=== PATIENT | male | born 1960 | race Caucasian/White ===

== ENCOUNTER 2021-06-19 01:40 | Day surgery (SDC) | payer OTHER, SELFPAY ==
[2021-06-07 08:55] VITALS: BMI 35.9
[2021-06-19 06:51] LABS: Glucose Point of Care 167 mg/dl (65-105)
[2021-06-19 06:53] VITALS: BP 162/86; PULSE 93; RESP 18; TEMP 36.4; O2SAT 98
[2021-06-19] MEDS: LACTATED RINGERS 1,000 ML 150 ML IV CONT (06:58)
--- NOTE | 2021-06-19 07:41 | WPDANESEPPF ---
Anes - Initial Pre Proc Eval Procedure: Operation Date: 06/19/21 08:00 Proposed Procedures p Screening Colonoscopy - Francisco Javier Mae MD Date/Time: 06/19/21 07:41 Surgeon: Francisco Javier Mae MD Pre Op Diagnosis: hx of colon polyps Patient Data Age: 60 Gender: M Height: 1.88 m Weight: 130.1 kg Last Vital Signs Temp 97.5 F L 06/19/21 06:53 Pulse 93 06/19/21 06:53 Resp 18 06/19/21 06:53 BP 162/86 H 06/19/21 06:53 Pulse Ox 98 06/19/21 06:53 Allergies Allergy/AdvReac Type Severity Reaction Status Date / Time No Known Allergies Allergy Verified 06/19/21 06:51 Home Medications Medication Instructions Recorded Confirmed Type amlodipine 10 mg tablet 10 mg PO DAILY #90 tablet 01/15/21 06/19/21 Rx glimepiride 1 mg tablet 1 mg PO QAM #90 tablet 01/15/21 06/19/21 Rx clobetasol 0.05 % topical cream 1 applic TOPICAL BID PRN #60 gm 02/14/21 06/19/21 Rx lisinopril 20 1 tablet PO DAILY #90 tablet 02/14/21 06/19/21 Rx mg-hydrochlorothiazide 25 mg tablet potassium chloride 20 mEq 20 meq PO DAILY #90 tablet 02/14/21 06/19/21 Rx tablet,extended release ibuprofen 800 mg tablet See Rx Instructions .ROUTE 02/19/21 06/19/21 Rx .COMPLEX #180 tablet atorvastatin 20 mg tablet 20 mg PO DAILY #90 tablet 04/18/21 06/19/21 Rx citalopram 40 mg tablet 40 mg PO DAILY #90 tablet 04/18/21 06/19/21 Rx furosemide 40 mg PO DAILY 06/07/21 06/19/21 History pioglitazone 45 mg PO DAILY 06/07/21 06/19/21 History Laboratory Tests 06/19/21 06:47 POC Capillary Glucose 167 mg/dl H mg/dl (65-105) Patient hx anesthesia problems: none Family hx anesthesia problems: none Results Review: All pre-operative results and documents have been reviewed as part of the pre-operative evaluation. [facility] Past Medical History Medical History (Updated 02/23/22 @ 09:25 by Kai An MD) Depression History of prostate cancer Obesity Surgical History Surgical History History of radical prostatectomy Status post arthrodesis 1st metatarsophalangeal Status post colon resection due to large lipoma Status post right knee replacement Family History Family History Mother Family history of malignant neoplasm of ovary Social History Social History Social History: Smoking status: Never smoker Second hand tobacco smoke exposure: No Alcohol intake: current Drinks per week: 16 Alcohol use details: BEER Substance use: never Substance use type: does not use Living arrangements: with family Additional living arrangements comments: pt 2 sons live him Gender identity (if verbalized by the patient): Male Sexual Orientation (if Verbalized by the Patient): Straight or Heterosexual Spiritual care concerns: No Anes - Eval Final PreProcedure Day of Procedure 06/19/21 07:41 Patient weight: obese Heart: regular rate and rhythm Lungs: clear to auscultation Airway: Mallampati scale class III Neurological: alert and oriented Last oral intake: >/= 8 hours ASA classification: III Emergent: no Anesthetic plan: proceed Anesthesia type and monitoring: general GIVS and standard monitoring Results Review: All pre-operative results and documents have been reviewed as part of the pre-operative evaluation. Informed Consent: The patient's anesthetic plan and its attendant risks and benefits were discussed with the patient/family/POA. Questions were solicited and answers provided to the satisfaction of the patient/family/POA.
--- NOTE | 2021-06-19 07:52 | PM.HPGS ---
History of Present Illness History of Present Illness Consent: Risks, benefits, and alternatives have been discussed and questions answered. Patient agrees to proceed with procedure. Chief complaint: hx of colon polyps Narrative: Gurmeet Henderson is a 60 year old male with non-malignant mass in descending colon 2015 removed with partial colectomy ? lipoma, he is due to have another colonoscopy. Review of Systems Constitutional: Constitutional: Denies headache(s) and Denies weakness Eyes: Eyes: Denies blurry vision ENT: Reports Normal hearing present, Denies headache(s) and Denies neck pain Cardiovascular: Cardiovascular: Denies chest pain and Denies dyspnea Respiratory: Respiratory: Denies dyspnea Gastrointestinal: Gastrointestinal: Reports no additional gastrointestinal complaints Genitourinary: Genitourinary: Denies dysuria Musculoskeletal: Musculoskeletal: Denies neck pain Integumentary/Breasts: Skin/Breast: Denies dry skin Neurologic: Reports Normal hearing present, Denies headache(s) and Denies weakness Psychiatric: Psychiatric: Denies anxiety Endocrine: Endocrine: Denies change in body appearance Hematologic/Lymphatic: Hematologic/Lymphatic: Denies easy bleeding Allergic/Immunologic: Allergic/Immunologic: Denies urticaria PMFSH Past Medical History Medical History (Updated 06/19/21 @ 07:53 by Francisco Javier Mae MD) Adenomatous colon polyp Depression History of prostate cancer Obesity Surgical History Surgical History History of radical prostatectomy Status post arthrodesis 1st metatarsophalangeal Status post colon resection due to large lipoma Status post right knee replacement Family History Family History Mother Family history of malignant neoplasm of ovary Social History Social History Social History: Smoking status: Never smoker Second hand tobacco smoke exposure: No Alcohol intake: current Drinks per week: 16 Alcohol use details: BEER Substance use: never Substance use type: does not use Living arrangements: with family Additional living arrangements comments: pt 2 sons live him Gender identity (if verbalized by the patient): Male Sexual Orientation (if Verbalized by the Patient): Straight or Heterosexual Spiritual care concerns: No Meds Home Medications and Allergies Home Medications Medication Instructions Recorded Confirmed Type amlodipine 10 mg tablet 10 mg PO DAILY #90 tablet 01/15/21 06/19/21 Rx glimepiride 1 mg tablet 1 mg PO QAM #90 tablet 01/15/21 06/19/21 Rx clobetasol 0.05 % topical cream 1 applic TOPICAL BID PRN #60 gm 02/14/21 06/19/21 Rx lisinopril 20 1 tablet PO DAILY #90 tablet 02/14/21 06/19/21 Rx mg-hydrochlorothiazide 25 mg tablet potassium chloride 20 mEq 20 meq PO DAILY #90 tablet 02/14/21 06/19/21 Rx tablet,extended release ibuprofen 800 mg tablet See Rx Instructions .ROUTE 02/19/21 06/19/21 Rx .COMPLEX #180 tablet atorvastatin 20 mg tablet 20 mg PO DAILY #90 tablet 04/18/21 06/19/21 Rx citalopram 40 mg tablet 40 mg PO DAILY #90 tablet 04/18/21 06/19/21 Rx furosemide 40 mg PO DAILY 06/07/21 06/19/21 History pioglitazone 45 mg PO DAILY 06/07/21 06/19/21 History Allergies Allergy/AdvReac Type Severity Reaction Status Date / Time No Known Allergies Allergy Verified 06/19/21 06:51 Vital Signs Vital Signs - 24 hr 06/19/21 06:53 Temperature 97.5 F L Pulse Rate 93 Respiratory Rate 18 Blood Pressure 162/86 H Pulse Oximetry 98 Exam Const: General: comfortable and no acute distress HENMT: General nose exam: Normal nares present Eyes: General: appearance normal, both eyes and all related structures Neck: Neck: no JVD Resp: Auscultation: clear to auscultation bilaterally Cardio: Rate: regular rate Rhy
[2021-06-19 08:22] VITALS: BP 126/78; PULSE 90; RESP 22; O2SAT 94
[2021-06-19 08:32] VITALS: BP 138/87; PULSE 85; RESP 22; O2SAT 94
[2021-06-19 08:42] VITALS: BP 142/81; PULSE 83; RESP 17; O2SAT 97
== END 2021-06-19 08:52 | disposition home or self-care (01) ==
PROVIDERS: PCP Family Medicine; Visit Provider Internal Medicine Gastroenterology
PROC: 0DJD8ZZ Inspection of Lower Intestinal Tract, Via Natural or Artificial Opening Endoscopic (ICD-10-PCS; CPT 45378; principal; 2021-06-19 08:00)
DX: Z12.11 Encounter for screening for malignant neoplasm of colon (principal); K57.30 Diverticulosis of large intestine without perforation or abscess without bleeding; K64.8 Other hemorrhoids; Z86.010 Personal history of colon polyps; Z90.49 Acquired absence of other specified parts of digestive tract; F32.9 Major depressive disorder, single episode, unspecified; E66.9 Obesity, unspecified; Z68.36 Body mass index [BMI] 36.0-36.9, adult; Z79.84 Long term (current) use of oral hypoglycemic drugs; Z85.46 Personal history of malignant neoplasm of prostate
CPT/HCPCS: 45378; 82948; J2704; J7120

== ENCOUNTER → 2023-02-12 08:28 | Outpatient (CLI) | payer OTHER, SELFPAY ==
--- NOTE | ~2023-02-12 | MR_ITS ---
EXAMINATION: MR lumbar spine wo/w con DATE: 02/12/2023 09:20 INDICATION: Lumbar spondylosis TECHNIQUE: Magnetic resonance imaging (MRI) of the lumbar spine was performed without and with 20 mL Multihance intravenous contrast. Sequences included sagittal T2-weighted FSE, sagittal T2-weighted FS FSE, and sagittal and axial T1-weighted FSE. Postcontrast sequences included axial T2-weighted FSE, sagittal T1-weighted FSE, and axial and sagittal T1-weighted FS FSE. COMPARISON: None FINDINGS: 3 mm retrolisthesis L2 on L3 and 5 mm retrolisthesis L3 on L4. Chronic likely physiologic anterior we dging with 20% anterior vertebral body height loss at L1 and with minimal anterior vertebral body hei ght loss at T12 and L2. There are Schmorl's nodes along the superior endplates from T11 through L3 an d along the inferior endplates of T12 and L1. L2-L5 laminectomies. Postoperative change of instrument ed anterior and posterior spinal fusion at L4-L5 with metallic magnetic field artifact associated wit h interbody fusion device and bilateral vertical adam and pedicle screw fixation at this level. There are fibrofatty degenerative endplate changes at several of the lumbar spine. Marrow signal is otherwi se unremarkable. Severe disc height loss at L2-L3. Moderate disc height loss at L3-L4. Mild disc heig ht loss with vacuum phenomena at L5-S1. Mild disc desiccation without significant disc height loss at L1-L2. The conus medullaris terminates at L1. There is normal signal in the caudal spinal cord. Ther e is diffuse enhancement associated with likely postoperative scarring along the midline relating pre ssure in the soft tissues overlying the mid to lower lumbar spine. Within this region of enhancement there are a few small areas of nonenhancing fluid collections, the largest measuring 4.8 cm craniocau dally and up to 2.0 x 1.1 cm maximal transaxial dimensions. The following disc levels are specificall y discussed: T12-L1: Disc is mildly bulging. There is moderate bilateral facet joint osteoarthritis. There is mild bilateral neural foraminal stenosis. There is mild central canal stenosis. L1-L2: Disc is bulging with central annular fissure and small disc extrusion with disc material exten ding up to 7 mm caudal to the level of the superior endplate of L2. There is moderate left and modera te to severe right facet joint osteoarthritis. There is mild right and moderate left neural foraminal stenosis. There is moderate central canal stenosis. L2-L3: Disc is bulging with annular fissure and small bilateral foraminal zone disc extrusions. There is severe bilateral facet joint osteoarthritis. There is moderate right and moderate to severe left neural foraminal stenosis. There is posterior decompression with moderate residual central canal sten osis. L3-L4: Disc is bulging with annular fissure and broad-based disc extrusion extending from foraminal z one to foraminal zone with disc material extending a few millimeter caudal to the level of the superi or endplate of L4. There is severe bilateral facet joint osteoarthritis. There is moderate to severe bilateral neural foraminal stenosis. There is posterior decompression with residual moderate central canal stenosis. L4-L5: Anterior and posterior spinal fusion. There is no neural foraminal stenosis. There is mild jerrica tral canal stenosis. L5-S1: Annular fissure with broad-based disc extrusion extending from foraminal zone to foraminal zon e with disc material extending a few millimeters cephalad to the level of the inferior endplate of L5 . There is moderate to severe bilateral facet joint osteoarthritis. There is moderate bilateral neura l foraminal stenosis. There is mild central canal stenosis at level of the disc space and moderate ce ntral canal stenosis at level of the mid point of the L5 and S1 segments due to primarily to epidural lipomatosis. IMPRESSION: 1. Severe lumbar spondylosis
== END ==
PROVIDERS: PCP Family Medicine
DX: M47.816 Spondylosis without myelopathy or radiculopathy, lumbar region (principal); M43.16 Spondylolisthesis, lumbar region; M48.062 Spinal stenosis, lumbar region with neurogenic claudication
CPT/HCPCS: 72158; A9577

== ENCOUNTER 2024-07-13 11:53 | Outpatient (CLI) | payer MEDICARE, SELFPAY ==
--- NOTE | ~2024-07-13 | CT_ITS ---
CLINICAL INDICATION: Left lower quadrant pain COMPARISON: . TECHNIQUE: Multiple contiguous axial images of the abdomen and pelvis were performed following the ad ministration of with 100 mL Omnipaque-350 intravenous contrast The dose-length product (DLP) was 1130.81 mGy-cm. Automated exposure control and iterative reconstruction technique were employed. FINDINGS/OBSERVATIONS: Visualized lower thorax: The bilateral lung bases are clear. The heart is of normal size, without pericardial effusion. Small hiatal hernia is present. Liver: The liver demonstrates homogeneous enhancement and is not enlarged. Gallbladder and biliary system: The gallbladder is only minimally distended, and otherwise unremarkable. Pancreas: The pancreas enhances homogeneously without ductal dilatation. Spleen: The spleen enhances homogeneously and is not enlarged. Kidneys: The bilateral kidneys enhance symmetrically without hydronephrosis or renal calculi. Medial displacement of the ureters are identified. Adrenal glands: Unremarkable. Gastrointestinal tract: Sigmoid diverticulosis without surrounding inflammatory change. Fecal stasis within the colon. Appendix: The appendix is not definitively visualized. However, no pericecal inflammatory change is identified suggest the presence of acute appendicitis. Vasculature: Trace calcified atherosclerotic disease without aneurysmal dilatation. Lymph nodes: No pathologically enlarged or morphologically suspicious lymph nodes within the retroperitoneum or at the root of the mesentery. Pelvic structures: The bladder is minimally distended, with thickened [place]. The prostate gland is surgically absent. Body wall and musculoskeletal: Anterior fixation within the lower lumbar spine, at the levels of L3, L4, L5 and S1. Disc spacers are also present at the level of L3/L4, L4/L5 and L5/S1. IMPRESSION: No acute findings within the abdomen or pelvis, as detailed above. Medial displacement of the bilateral ureters, which can be seen in retroperitoneal fibrosis, which is not detected on the current examination. Reviewed, dictated and finalized at location A. IMPRESSION: No acute findings within the abdomen or pelvis, as detailed above. Medial displacement of the bilateral ureters, which can be seen in retroperiton eal fibrosis, which is not detected on the current examination.
[2024-07-13 12:19] LABS: Estimated Glomerular Filt Rate > 60
== END 2024-07-13 11:54 | disposition home or self-care (01) ==
LOC: MICIMG 11:53
PROVIDERS: PCP Family Medicine; Visit Provider Physician Assistant
DX: R10.32 Left lower quadrant pain (principal); R14.0 Abdominal distension (gaseous); K59.00 Constipation, unspecified
CPT/HCPCS: 74177; Q9967